=== PATIENT | male | born 1955 | race Caucasian/White ===

== ENCOUNTER → 2017-07-30 | Outpatient (CLI) | payer OTHER | END | disposition home or self-care (01) | LOC: PCVCIMAG 14:15 | DX: I65.23 Occlusion and stenosis of bilateral carotid arteries (principal); I10 Essential (primary) hypertension; N13.30 Unspecified hydronephrosis | CPT/HCPCS: 76770; 93880; 93975 ==

== ENCOUNTER → 2018-05-24 | Outpatient (CLI) | payer OTHER ==
--- NOTE | 2018-05-24 17:27 | PCVCIMAG ---
APPROVED REPORT Study performed: 05/24/2018 15:26:05 EXAM: Comprehensive 2D, Doppler, and color-flow Echocardiogram Patient Location: Echo lab Status: routine BSA: 2.85 HR: 86 bpmBP: 206/90 mmHg Rhythm: RBBB Other Information Study Quality: Adequate Risk Factors: Cardiac Risk Factors: HTN Indications pulmonary embolism, obesity 2D Dimensions IVSd: 12.68 (7-11mm) LVDd: 47.67 mm PWd: 11.51 (7-11mm)Ascending Ao: 39.20 (22-36mm) LVDs: 31.79 (25-40mm) Left Atrium: 41.77 (27-40mm) Aortic Root: 38.14 mm LV Single Plane 4CH: 43.73 % LV Single Plane 2CH: 52.80 % Biplane EF: 47.1 % Volumes Left Atrial Volume (Systole) Single Plane 4CH: 78.10 mLSingle Plane 2CH: 91.25 mL LA ESV Index: 31.00 mL/m2 Tricuspid Valve TR Peak Roney.: 2.55 m/s TR Peak Gr.: 25.98 mmHg Left Ventricle The left ventricle is normal size. There is normal LV segmental wall motion. There is normal left ventricular wall thickness. Left ventricular systolic function is borderline mildly decreased. Discordant septal motion. LVEF is 45-50%. This study is not technically sufficient to allow evaluation of the LV diastolic function. Right Ventricle The right ventricle is normal size. The right ventricular systolic function is normal. Atria Left atrium is mildly dilated. Right atrium is mildly dilated. Aortic Valve The aortic valve is normal in structure. No aortic regurgitation is present. There is no aortic valvular stenosis. Mitral Valve The mitral valve is normal in structure. There is no mitral valve regurgitation noted. No evidence of mitral valve stenosis. Tricuspid Valve The tricuspid valve is normal in structure. Mild tricuspid regurgitation with PAP of 33 mmHg. Pulmonic Valve The pulmonary valve is normal in structure. There is no pulmonic valvular regurgitation. Great Vessels The aortic root is within the upper limits of normal in size at 3.8 cm. The ascending aorta is borderline dilated to 3.9 cm. IVC is normal in size and collapses >50% with inspiration. Pericardium There is no pericardial effusion. There is no pleural effusion. <Conclusion> The left ventricle is normal size. Left ventricular systolic function is borderline mildly decreased. Discordant septal motion. LVEF is 45-50%. This study is not technically sufficient to allow evaluation of the LV diastolic function. The right ventricle is normal size. Left atrium is mildly dilated. Right atrium is mildly dilated. The aortic valve is normal in structure. There is no mitral valve regurgitation noted. Mild tricuspid regurgitation with PAP of 33 mmHg. The aortic root is within the upper limits of normal in size at 3.8 cm. There is no pericardial effusion.
== END | disposition home or self-care (01) ==
LOC: PCVCIMAG 16:26
PROVIDERS: ATTEND Internal Medicine Cardiovascular Disease
DX: I07.1 Rheumatic tricuspid insufficiency (principal); I26.99 Other pulmonary embolism without acute cor pulmonale; E66.9 Obesity, unspecified; I10 Essential (primary) hypertension; E11.9 Type 2 diabetes mellitus without complications; G47.33 Obstructive sleep apnea (adult) (pediatric); I25.10 Atherosclerotic heart disease of native coronary artery without angina pectoris; F32.9 Major depressive disorder, single episode, unspecified; E78.2 Mixed hyperlipidemia; E78.00 Pure hypercholesterolemia, unspecified; Z95.5 Presence of coronary angioplasty implant and graft
CPT/HCPCS: 93308

== ENCOUNTER → 2019-02-24 | Outpatient (CLI) | payer OTHER ==
--- NOTE | 2019-02-24 14:16 | PCVCIMAG ---
EXAM: BILATERAL CAROTID DUPLEX INDICATION: Carotid Occlusive Disease. Prior left carotid stent FINDINGS: Doppler Measurements (centimeters per second): RIGHT: Peak CCA-71, Peak ECA-198, Diastolic ICA-31, Peak ICA-188, ICA/CCA Ratio-2.5. LEFT: Peak CCA-72, Peak ECA-584, Diastolic ICA-33, Peak ICA-145, ICA/CCA Ratio-2.0. RIGHT CAROTID: The carotid bulb has moderate plaque. The proximal internal carotid artery shows 50-60% stenosis. The common carotid artery shows no significant stenosis. The external carotid artery shows 60% stenosis. LEFT CAROTID: Good color flow throughout a prior stent in the upper common carotid and extending into the proximal internal carotid artery. The proximal internal carotid artery shows 40-50% stenosis. The common carotid artery shows no significant stenosis. The external carotid artery shows 90% stenosis. Antegrade flow in both vertebral arteries. IMPRESSION: 50-60% stenosis of the right internal carotid artery with moderate plaque has shown slight progression since July 2017 study. 40-50% stenosis of the left internal carotid artery within prior stent similar to prior study. LOC:[id number]
== END | disposition home or self-care (01) ==
LOC: PCVCIMAG 13:24
PROVIDERS: ATTEND Internal Medicine Cardiovascular Disease
DX: I65.23 Occlusion and stenosis of bilateral carotid arteries (principal); Z87.891 Personal history of nicotine dependence
CPT/HCPCS: 93880